=== PATIENT | female | born 1970 | race Two or more races ===

== ENCOUNTER 2025-02-27 23:08 | Emergency (ER) | payer OTHER ==
[~2025-02-27] VITALS: Ht 154.9 cm; Wt 68.0 kg
[2025-02-28 00:10] VITALS: BP 111/81; TEMP 98; O2SAT 99
== END 2025-02-28 00:10 | disposition home or self-care (01) ==
LOC: ER 23:15
DX: F10.129 Alcohol abuse with intoxication, unspecified (principal); F41.0 Panic disorder [episodic paroxysmal anxiety]; Y90.9 Presence of alcohol in blood, level not specified
CPT/HCPCS: 82962-TC